=== PATIENT | male | born 1990 | race Hispanic/Latino ===

== ENCOUNTER 2020-02-02 10:33 | Emergency (ER) | payer OTHER ==
[~2020-02-02] VITALS: Ht 182.9 cm; Wt 94.8 kg
[2020-02-02] MEDS ORDERED: SODIUM CHLORIDE 0.9% 1000ML 1,000 ML IV STA (10:42)
[2020-02-02] MEDS ORDERED: KETOROLAC TROMETHAMINE 30 MG/ML VIAL IV STA (10:42)
--- NOTE | 2020-02-02 11:02 | Emergency Department Note ---
History of Present Illnes History of Present Illness History of Present Illness This is a 29 year old male arrived to the ED with complaints of RLQ pain for 2 days. [employer]back [employer]iding [employer] Required: No Onset (how long ago): day(s) Radiation: Reports non-radiation Severity: mild Timing of current episode: constant Progression: waxing and waning Chronicity: new Relieving factors: none Past Medical/Family History Physician Review I have reviewed the patient's past medical and family history. Any updates have been documented here. Physical Exam Related Data Allergies: Coded Allergies: No Known Allergies (Unverified , 02/02/20) Physical Exam CONSTITUTIONAL HENT EYES NECK PULMONARY CARDIOVASCULAR GASTROINTESTINAL GENITOURINARY SKIN MUSCULOSKELETAL NEUROLOGICAL PSYCHOLOGICAL Results Laboratory Lab results reviewed: Yes Imaging Imaging results reviewed: Yes Impressions IMPRESSION: Normal CT of the abdomen and pelvis. No evidence of cholelithiasis, nephrolithiasis, or appendicitis. Assessment & Plan Medical Decision Making MDM 29-year-old well-appearing female arrived to the ED with right lower quadrant abdominal pain, concerns of possible appendicitis. Patient's labwork unremarkable. CT abdomen pelvis unremarkable patient stable for discharge home. Outpatient GI follow-up given. Assessment & Plan Final Impression: (1) Abdominal pain Depart Disposition: HOME, SELF-FDC Meds Discontinued Scripts Ondansetron Hcl* (ZOFRAN*) 4 Mg Tablet, 4 MG SL Q6H PRN for NAUSEA, #14 MG 0 Refills Prov:CAROLYNE GOODEN DO 02/02/20 Tramadol Hcl (ULTRAM) 50 Mg Tablet, 50 MG PO Q6HR PRN for Mild Pain (1-3) or Fever>100.8, #14 TAB Prov:CAROLYNE GOODEN DO 02/02/20 CAROLYNE GOODEN DO Feb 02, 2020 11:02
[2020-02-02 11:11] LABS: BASOPHILS % 0.2 % (0.0-1.0); EOSINOPHILS # (AUTO) 0.1 (0.0-0.4); EOSINOPHILS % 1.1 % (0.0-6.0); HEMATOCRIT 44.7 % (38.2-49.6); LYMPHOCYTES # (AUTO) 1.8 (1.0-3.2); LYMPHOCYTES % 38.8 % (18.0-39.1); MEAN CORPUSCULAR HEMOGLOBIN 31.2 pg (28-32); MEAN CORPUSCULAR HGB CONC 33.6 g/dL (31-35); MEAN CORPUSCULAR VOLUME 92.9 fL (81-99); MONOCYTES # (AUTO) 0.2 (0.2-0.8); MONOCYTES % 4.2 % (4.4-11.3); NEUTROPHILS # (AUTO) 2.6 (2.1-6.9); NEUTROPHILS % 55.5 % (38.7-80.0); PLATELET COUNT 267 x10e3/uL (140-360); RED BLOOD COUNT 4.81 x10e6/uL (4.3-5.7); RED CELL DISTRIBUTION WIDTH 12.1 % (11.7-14.4)
[2020-02-02 11:17] LABS: BILIRUBIN,URINE NEGATIVE (NEGATIVE); CLARITY,URINE CLEAR (CLEAR); COLOR,URINE YELLOW (YELLOW); KETONES,URINE NEGATIVE (NEGATIVE); LEUKOCYTE ESTERASE ,URINE NEGATIVE (NEGATIVE); NITRITE,URINE NEGATIVE (NEGATIVE); PROTEIN,URINE DIPSTICK NEGATIVE (NEGATIVE); URINE UROBILINOGEN 0.2 mg/dL (0.2 - 1)
[2020-02-02 11:25] LABS: RBC,URINE 0-5 /HPF (0-5); WBC,URINE (MAN) 0-5 /HPF (0-5)
[2020-02-02 11:26] LABS: BACTERIA,URINE RARE /HPF; EPITHELIAL CELLS,URINE FEW /LPF
[2020-02-02 11:36] LABS: ALANINE AMINOTRANSFERASE 18 IU/L (0-55); ALBUMIN 4.7 g/dL (3.5-5.0); ALBUMIN/GLOBULIN RATIO 1.9 (0.8-2.0); ALKALINE PHOSPHATASE 72 IU/L (40-150); ANION GAP 16.5 mmol/L (8-16); BLOOD UREA NITROGEN 11 mg/dL (7-26); BUN/CREATININE RATIO 12 (6-25); CALCIUM 8.9 mg/dL (8.4-10.2); CARBON DIOXIDE 21 mmol/L (22-29); CHLORIDE 105 mmol/L (98-107); CREATININE, SERUM 0.92 mg/dL (0.72-1.25); EST GLOMERULAR FILTRATION RATE > 60 ML/MIN (60-); GLUCOSE 160 mg/dL (74-118); POTASSIUM 3.5 mmol/L (3.5-5.1); SODIUM 139 mmol/L (136-145)
--- NOTE | 2020-02-02 13:17 | Diagnostic Imaging Report ---
CT of the abdomen and pelvis, with contrast, 02/02/2020. History: Abdominal pain. Comparison: None available. Technique: Multidetector CT scanning of the abdomen and pelvis was performed from the level of the lung bases to the inferior pubic rami after intravenous administration of contrast. Coronal and sagittal multiplanar reformations were obtained. RADIATION DOSE: Total DLP: 434 mGy*cm Dose modulation, iterative reconstruction, and/or weight based adjustment of the mA/kV was utilized to reduce the radiation dose to as low as reasonably achievable. Discussion: LUNG BASES: No visualized abnormalities. ABDOMEN: The liver, gallbladder, biliary tree, spleen, pancreas, adrenal glands, and kidneys are normal. The hepatic vein, portal vein, and splenic vein are patent. The abdominal aorta is within normal limits for size. Evaluation of bowel is limited without oral contrast. There is no bowel dilatation. The appendix is visualized and is normal. There is no evidence of adenopathy or free fluid. PELVIS: The bladder, prostate, and seminal vesicles are unremarkable. There is no evidence of free fluid or adenopathy. BONES AND SOFT TISSUES: No acute abnormality. IMPRESSION: Normal CT of the abdomen and pelvis. No evidence of cholelithiasis, nephrolithiasis, or appendicitis. Signed by: Nelson Parish on 02/02/2020 1:14 PM
[2020-02-02] MEDS ORDERED: IOPAMIDOL 370 MG/ML 200 ML INFUS..BTL INJ ONE (13:28)
[2020-02-02] MEDS ORDERED: SODIUM CHLORIDE 0.9% 50ML 50 ML ONE (13:28)
[2020-02-02] MEDS ORDERED: ULTRAM50 MG PO (13:54)
[2020-02-02] MEDS ORDERED: ZOFRAN4 MG SL (13:54)
[2020-02-02] MEDS ORDERED: HYDROCODONE/APAP 10MG-325MG TAB PO ONE (14:15)
[2020-02-02] MEDS ORDERED: HYDROCODONE/APAP 10MG-325MG TAB ONE (14:23)
[2020-02-02 14:28] VITALS: BP 132/65
== END 2020-02-02 14:31 | disposition home or self-care (01) ==
LOC: ER 10:55
DX: R10.31 Right lower quadrant pain (principal); R11.0 Nausea
CPT/HCPCS: 36415; 74177; 80053; 81001; 83690; 85025; 99284; J1885; J7030; Q9967

== ENCOUNTER → 2020-02-10 | Day surgery (SDC) | payer OTHER ==
[~2020-02-10] MED LIST: FENTANYL CITRATE/PF 100MCG/2 ML INJ ONE; HYOSCYAMINE 0.125 MG TAB ONE; KETAMINE HCL INJ 50 MG/ML 10 ML VIAL ONE; LIDOCAINE HCL 2% LOCAL INJ 5 ML SDV VIAL INJ ONE; MIDAZOLAM HCL 2 MG/2 ML VIAL ONE; PROPOFOL IV EMULSION 10 MG/ML 20 ML VIAL ONE; ULTRAM50 MG PO; ZOFRAN4 MG SL
[2020-02-10 18:01] LABS: WBC,FECAL (FECAL LACTOFERRIN) NEGATIVE (NEGATIVE)
[2020-02-10 18:02] VITALS: BP 122/78
--- NOTE | 2020-02-10 18:58 | Operative Report ---
DATE OF PROCEDURE: 02/10/2020 SURGEON: Nico Chand MD PROCEDURE: Colonoscopy with biopsies. INDICATIONS FOR COLONOSCOPY: Crampy lower abdominal pain, diarrhea, history of bright red blood per rectum. MEDICATIONS: The patient was done under MAC, please see anesthesiologist's note. PROCEDURE IN DETAIL: With the patient in the left lateral decubitus position, flexible fiberoptic Olympus colonoscope was inserted into the rectum with ease and advanced all the way to the cecum. Mucosa overlying the cecum appeared to be within normal limits. The ileocecal valve was intubated and the scope was advanced into the terminal ileum. Biopsies were obtained. The scope was then withdrawn back into the colon. It was then withdrawn slowly. Mucosa overlying the ascending, transverse, descending sigmoid and rectum revealed some patchy mild inflammatory changes and random biopsies were obtained. The scope was then retroflexed into the distal rectum. Small internal hemorrhoids were noted, none of which was actively bleeding. The scope was then straightened out, it was subsequently withdrawn. The patient tolerated the procedure well. IMPRESSION: 1. Mild patchy inflammatory changes throughout colon? Low-grade colitis, random biopsies obtained. 2. Proctitis, mild. 3. Internal hemorrhoids, none actively bleeding. PLAN: Follow up histology. Follow up stool studies. Initiate Bentyl 20 mg one p.o. t.i.d. and Flagyl 500 mg one p.o. q.6 hours x14 days. Nico Chand MD [facility] [place]/MODL /[id number] cc: Remi Hough III, MD
[2020-02-11 11:38] LABS: C DIFFICILE TOXIN A&B AMP PROB NEGATIVE (NEGATIVE)
== END | disposition home or self-care (01) ==
LOC: OR 15:06
PROVIDERS: ATTEND Internal Medicine Gastroenterology
DX: K52.9 Noninfective gastroenteritis and colitis, unspecified (principal); K62.89 Other specified diseases of anus and rectum; K64.8 Other hemorrhoids; F41.9 Anxiety disorder, unspecified; Z01.812 Encounter for preprocedural laboratory examination; Z11.59 Encounter for screening for other viral diseases; Z68.28 Body mass index [BMI] 28.0-28.9, adult
CPT/HCPCS: 36415; 45380; 83630; 83993; 85651; 86140; 86256; 86671; 87045; 87177; 87328; 87493; J2001; J2250; J2704; J3010; U0002